=== PATIENT | male | born 1995 | race Caucasian/White ===

== ENCOUNTER 2017-04-13 14:10 | Emergency (ER) | payer BC ==
[2017-04-13 14:55] VITALS: BP 144/71
--- NOTE | 2017-04-13 15:36 | UC ---
Palpitation/Dysrhythmia HP - HPI Summary HPI Summary: PT REPORTS FEELING INTERMITTENTLY DIZZY, WEAK AND HAVING PALPITATIONS OVER THE PAST MONTH AND A HALF. DENIES CAFFEINE INTAKE. REPORTS GOOD HYDRATION. POSSIBLY SOME INCREASED STRESS IN HIS LIFE BUT HE DOES NOT HAVE A H/O ANXIETY. NO FEVER, RECENT ILLNESS, CP, SOB, N/V/D, SWEATS OR SYNCOPE. - History of Current Complaint Chief Complaint: UCGeneralIllness Stated Complaint: HEART SKIPPING AND BP ISSUE Time Seen by Provider: 04/13/17 14:57 Hx Obtained From: Patient Timing: Intermittent Episodes Lasting: Severity Initially: Moderate Severity Currently: None Pain Intensity: 0 Pain Scale Used: 0-10 Numeric Character: Skipped Beats Aggravating Factor(s): Exertion Alleviating Factor(s): Nothing Associated Signs & Symptoms: Positive: Dizzy - Allergy/Home Medications Allergies/Adverse Reactions: Allergies Allergy/AdvReac Type Severity Reaction Status Date / Time ENVIRONMENTAL/HAYFEVER Allergy Mild Runny Nose Uncoded 04/13/17 14:55 PMH/Surg Hx/FS Hx/Imm Hx Endocrine History Of: Denies: Diabetes, Thyroid Disease Cardiovascular History Of: Denies: Cardiac Disorders, Hypertension Respiratory History Of: Reports: Asthma Denies: COPD GI/ History Of: Denies: Ulcer - Surgical History Surgical History: Yes Surgery Procedure, Year, and Place: CHOLECYSTECTOMY 10/2012 - Family History Known Family History: Negative: Cardiac Disease, Hypertension, Diabetes - Social History Alcohol Use: Occasionally Substance Use Type: None Smoking Status (MU): Current Some Day Smoker Type: Cigars - Immunization History Vaccination Up to Date: Yes Review of Systems Constitutional: Negative Respiratory: Negative Cardiovascular: Palpitations Gastrointestinal: Negative Genitourinary: Negative All Other Systems Reviewed And Are Negative: Yes Physical Exam Triage Information Reviewed: Yes Appearance: Well-Appearing, No Pain Distress, Well-Nourished Vital Signs: Initial Vital Signs Temp 98.4 F 04/13/17 14:50 Pulse 76 04/13/17 14:50 Resp 20 04/13/17 14:50 BP 144/71 04/13/17 14:50 Pulse Ox 100 04/13/17 14:50 Vital Signs Reviewed: Yes Eyes: Positive: Conjunctiva Clear ENT: Positive: Hearing grossly normal, Pharynx normal, TMs normal Neck: Positive: Supple, Nontender, No Lymphadenopathy Respiratory Exam: Normal Cardiovascular Exam: Normal Abdomen Description: Positive: Soft Musculoskeletal: Positive: No Edema Neurological: Positive: Alert Psychological: Positive: Age Appropriate Behavior Skin: Negative: rashes Diagnostics - EKG Cardiac Rate: NL - 77 BPM Cardiac Rhythm: Sinus: Normal - INCOMPLETE RBBB Ectopy: None ST Segment: Normal Palpitations Course/Dx - Course Course Of Treatment: ADVISED OUTPATIENT WORK-UP WITH CARDIOLOGY. PT TO CALL FOR AN APPT FIRST THING Saturday. GO TO ER WITHOUT FAIL IF SX WORSEN. - Differential Dx/Diagnosis Provider Diagnoses: PALPITATIONS Discharge - Discharge Plan Condition: Stable Disposition: HOME Patient Education Materials: Palpitations (ED) Referrals: Juliano Love MD [Medical Doctor] - 1 Week Estefania Jones MD [Primary Care Provider] - Additional Instructions: BE SURE TO STAY WELL RESTED AND HYDRATED. AVOID EXCESSIVE CAFFEINE INTAKE. AVOID STRESSORS ABLE. FOLLOW-UP WITH CARDIOLOGY FOR A WORK-UP. GO TO ER WITHOUT FAIL IF YOU DEVELOP CHEST PAIN, SHORTNESS OF BREATH, NAUSEA, SWEATS, DIZZINESS OR ANY OTHER CONCERNING SYMPTOMS. CALL THE NUMBER BELOW FOR ASSISTANCE IN ESTABLISHING WITH A PCP An additional resource available to assist in finding the appropriate physician for your health care needs is the [facility] ([facility]). You may contact them by calling [phone].
== END 2017-04-13 15:46 | disposition home or self-care (01) ==
LOC: UCEAST 14:10
DX: R00.2 Palpitations (principal); J45.909 Unspecified asthma, uncomplicated; F17.290 Nicotine dependence, other tobacco product, uncomplicated; Z90.49 Acquired absence of other specified parts of digestive tract
CPT/HCPCS: 93005; 99211; G0463

== ENCOUNTER 2018-01-18 13:35 | Emergency (ER) | payer BC ==
[2018-01-18 13:49] VITALS: BP 127/75
--- NOTE | 2018-01-18 16:32 | UC ---
Haylee Sutton Nilda, scribed for Justyn Rao MD on 01/18/18 at 1358 . FLU HPI - HPI Summary HPI Summary: This patient is a 22 year old M presenting to [facility] [place] with a chief complaint of constant flu-like symptoms for one day. The patient rates the pain 2/10 in severity. Symptoms aggravated and alleviated by nothing. Patient reports cough, sore throat, body aches, rhinorrhea, and chills, but denies fever. Patient states recent sick contact with people positive for flu. - History of Current Complaint Chief Complaint: UCRespiratory Stated Complaint: FLU SYMPTOMS Time Seen by Provider: 01/18/18 13:51 Hx Obtained From: Patient Onset/Duration: Sudden Onset, Lasting Days, Still Present Severity Initially: Mild Pain Intensity: 2 Pain Scale Used: 0-10 Numeric Associated Signs & Symptoms: Positive: Myalgia, Cough, Sore Throat. Negative: Fever Related Hx: Possible Flu/Infectious Exposure - Allergy/Home Medications Allergies/Adverse Reactions: Allergies Allergy/AdvReac Type Severity Reaction Status Date / Time ENVIRONMENTAL/HAYFEVER Allergy Mild Runny Nose Uncoded 01/18/18 13:49 PMH/Surg Hx/FS Hx/Imm Hx Previously Healthy: Yes - Surgical History Surgical History: Yes Surgery Procedure, Year, and Place: CHOLECYSTECTOMY 10/2012 - Family History Known Family History: Negative: Cardiac Disease, Hypertension, Diabetes - Social History Alcohol Use: Occasionally Substance Use Type: None Smoking Status (MU): Current Some Day Smoker Type: Cigars - Immunization History Vaccination Up to Date: Yes Review of Systems Constitutional: Chills, Other - negative fever ENT: Sore Throat, Nasal Discharge Respiratory: Cough Musculoskeletal: Myalgia All Other Systems Reviewed And Are Negative: Yes Physical Exam Triage Information Reviewed: Yes Vital Signs: Initial Vital Signs Temp 99.6 F 01/18/18 13:46 Pulse 98 01/18/18 13:46 Resp 12 01/18/18 13:46 BP 127/75 01/18/18 13:46 Pulse Ox 98 01/18/18 13:46 Vital Signs Reviewed: Yes - Additional Comments VITAL SIGNS: Reviewed. GENERAL: Patient is a well developed and nourished M who is lying comfortable in the stretcher. Patient is not in any acute respiratory distress. HEAD AND FACE: Normocephalic EYES: PERRLA, EOMI x 2. Watery eyes. EARS: Hearing grossly intact. MOUTH: Oropharynx within normal limits. NECK: Supple, trachea is midline, no adenopathy, no JVD, no carotid bruit. CHEST: Symmetric, no tenderness at palpation LUNGS: Clear to auscultation bilaterally. No wheezing or crackles. CVS: Regular rate and rhythm, S1 and S2 present, no murmurs or gallops appreciated. ABDOMEN: Soft, non-tender. Bowel sounds are normal. No abdominal abnormal pulsations. EXTREMITIES: Full ROM in all major joints, no edema, no cyanosis or clubbing. NEURO: Alert and oriented x 3. No acute neurological deficits. Speech is normal and follows commands. SKIN: Dry and warm Re-Evaluation - Re-Evaluation First Eval Re-Evaluation Time: 14:20 Comment: Reviewed labs and D/C plan with patient. Flu Course/Dx - Course Course Of Treatment: This patient is a 22 year old M presenting to [facility] [place] with a chief complaint of constant flu-like symptoms for one day. The patient rates the pain 2/10 in severity. Symptoms aggravated and alleviated by nothing. Patient reports cough, sore throat, body aches, rhinorrhea, and chills, but denies fever. Patient states recent sick contact with people positive for flu. Influenza A negative. Influenza B positive. Medications given. I discussed all the findings and test results with the patient. Patient was instructed to return to the urgent care or go to ER immediately if any of the symptoms return or worsens. Plan of care was discussed with the patient and patient understands and agrees. All questions were answered to patient satisfaction. There were no further complaints or concerns. The patient was found to have increased BP in UC. The patient will follow up with PCP for better control of BP. - Differential Dx/Diagnosis Differential Diagnosis/HQI/PQRI: Bronchitis, Broncholiolitis, Influenza, Pneumonia, Upper Respiratory Infection Provider Diagnoses: Influenza Discharge - Discharge Plan Condition: Stable Disposition: HOME Prescriptions: Oseltamivir CAP* [Tamiflu CAP*] 75 mg PO BID #10 cap Patient Education Materials: Influenza (DC) Forms: *Work Release Referrals: Sixto Coates MD [Primary Care Provider] - Additional Instructions: Take medications as instructed Increase your fluid intake Return to the UC if symptoms worsen FOLLOW UP WITH YOUR PRIMARY CARE PROVIDER WITHIN ONE WEEK FOR HIGH BLOOD PRESSURE NOTED TODAY. The documentation as recorded by the Haylee segovia Nilda accurately reflects the service I personally performed and the decisions made by me, Justyn Rao MD.
== END 2018-01-18 14:29 | disposition home or self-care (01) ==
LOC: UCEAST 13:35
DX: J11.1 Influenza due to unidentified influenza virus with other respiratory manifestations (principal); F17.290 Nicotine dependence, other tobacco product, uncomplicated
CPT/HCPCS: 87502; 99212; G0463

== ENCOUNTER 2018-01-21 20:27 | Emergency (ER) | payer BC ==
[2018-01-21 20:50] VITALS: BP 149/83
--- NOTE | 2018-01-21 20:54 | UC ---
FLU HPI - HPI Summary HPI Summary: Pt presents with sore throat, sinus pain/pressure/congestion, and hoarseness. He tells me that 4 days ago he was diagnosed with the flu and started on tamiflu. His fever and body aches are feeling better, but his sinus symptoms are worsening and his sore throat is persisting. Denies fever, chills, SOB, chest pain, abdominal pain, n/v/d/c. - History of Current Complaint Chief Complaint: UCRespiratory Stated Complaint: URI Time Seen by Provider: 01/21/18 20:53 Hx Obtained From: Patient Severity Currently: Moderate Severity Initially: Moderate Pain Intensity: 6 Pain Scale Used: 0-10 Numeric - Allergy/Home Medications Allergies/Adverse Reactions: Allergies Allergy/AdvReac Type Severity Reaction Status Date / Time ENVIRONMENTAL/HAYFEVER Allergy Mild Runny Nose Uncoded 01/21/18 20:42 Home Medications: Home Medications Ibuprofen 200 mg PO Q6HR PRN 01/21/18 [History Confirmed 01/21/18] PMH/Surg Hx/FS Hx/Imm Hx Previously Healthy: Yes - Surgical History Surgical History: Yes Surgery Procedure, Year, and Place: CHOLECYSTECTOMY 10/2012 - Family History Known Family History: Negative: Cardiac Disease, Hypertension, Diabetes - Social History Occupation: Student Lives: With Family Alcohol Use: Occasionally Substance Use Type: None Smoking Status (MU): Never Smoked Tobacco Type: Cigars - Immunization History Vaccination Up to Date: Yes Review of Systems Constitutional: Negative Skin: Negative Eyes: Negative ENT: Sore Throat, Nasal Discharge, Sinus Congestion, Sinus Pain/Tenderness Respiratory: Negative Cardiovascular: Negative Gastrointestinal: Negative Neurological: Negative Psychological: Negative All Other Systems Reviewed And Are Negative: Yes Physical Exam Triage Information Reviewed: Yes Appearance: Well-Appearing, No Pain Distress, Well-Nourished Vital Signs: Initial Vital Signs Temp 99.0 F 01/21/18 20:44 Pulse 107 01/21/18 20:44 Resp 18 01/21/18 20:44 BP 149/83 01/21/18 20:44 Pulse Ox 98 01/21/18 20:44 Vital Signs Reviewed: Yes Eyes: Positive: Conjunctiva Clear. Negative: Conjunctiva Inflamed, Discharge ENT: Positive: Hearing grossly normal, Pharyngeal erythema, Nasal congestion, Nasal drainage, TMs normal, Hoarse voice, Sinus tenderness, Uvula midline. Negative: TM bulging, TM dull, TM red, Tonsillar swelling, Tonsillar exudate Neck: Positive: Supple, Other: - Anterior lymphadenopathy with mild TTP Respiratory: Positive: Lungs clear, Normal breath sounds, No respiratory distress, No accessory muscle use Cardiovascular: Positive: RRR, No Murmur, Pulses Normal Neurological: Positive: Fatigued Psychological: Positive: Age Appropriate Behavior Skin: Negative: rashes Flu Course/Dx - Course Course Of Treatment: Sinusitis. Pharyngitis - Differential Dx/Diagnosis Provider Diagnoses: Sinusitis. Pharyngitis Discharge - Discharge Plan Condition: Stable Disposition: HOME Prescriptions: Azithromycin TAB* [Zithromax TAB (Z-OXANA) 250 mg #6 tabs] 2 tab PO .TODAY, THEN 1 DAILY #1 oxana Patient Education Materials: Acute Bronchitis (ED) Referrals: Sixto Coates MD [Primary Care Provider] - Additional Instructions: If you develop a fever, shortness of breath, chest pain, new or worsening symptoms - please call your PCP or go to the ED. Your blood pressure was high at todays visit. Please see your primary provider within 4 weeks for recheck and re-evaluation.
[2018-01-21] MEDS ORDERED: Azithromycin TAB* 250 MG PO ONE (20:59)
== END 2018-01-21 21:10 | disposition home or self-care (01) ==
LOC: UCEAST 20:27
DX: J32.9 Chronic sinusitis, unspecified (principal); J02.9 Acute pharyngitis, unspecified
CPT/HCPCS: 99212; A9270-GY; G0463

== ENCOUNTER 2018-06-11 08:00 | Emergency (ER) | payer BC ==
--- NOTE | 2018-06-11 08:11 | UC ---
Complaint Male HPI - HPI Summary HPI Summary: This patient is a 22 year old M presenting [place] [facility] with a chief complaint of burning with urination that began a week ago. He states it is only occurs in the morning and resolves with increased frequency. The patient rates the pain 2/ 10 in severity. Patient denies draining, fever, chills, and ABD pain. Pt states he has intercourse with one women and doesnt believe she is experiencing sx. - History of Current Complaint Stated Complaint: STI SCREENING Time Seen by Provider: 06/11/18 08:04 Hx Obtained From: Patient Onset/Duration: Lasting Weeks, Still Present Timing: Intermittent, Lasting Hours Severity Initially: Mild Severity Currently: Mild Pain Intensity: 2 Pain Scale Used: 0-10 Numeric Location: Penis Associated Signs And Symptoms: Positive: Negative - draining, fever, chills, and ABD pain - Allergies/Home Medications Allergies/Adverse Reactions: Allergies Allergy/AdvReac Type Severity Reaction Status Date / Time ENVIRONMENTAL/HAYFEVER Allergy Mild Runny Nose Uncoded 06/11/18 08:16 Home Medications: Home Medications Cetirizine HCl [Zyrtec] 1 tab PO DAILY PRN 06/11/18 [History Confirmed 06/11/18] PMH/Surg Hx/FS Hx/Imm Hx Previously Healthy: Yes Other History Of: Negative For: Hepatitis C, Anticoagulant Therapy - Surgical History Surgical History: Yes Surgery Procedure, Year, and Place: CHOLECYSTECTOMY 10/2012 - Family History Known Family History: Negative: Cardiac Disease, Hypertension, Diabetes - Social History Alcohol Use: Occasionally Substance Use Type: None Smoking Status (MU): Never Smoked Tobacco Type: Cigars - Immunization History Vaccination Up to Date: Yes Review of Systems Constitutional: Negative - fever and chills Genitourinary: Other - burning All Other Systems Reviewed And Are Negative: Yes Physical Exam - Summary Physical Exam Summary: General: well-appearing, no pain distress Skin: warm, color reflects adequate perfusion, dry Head: normal Eyes: EOMI, JEFFRY ENT: normal Neck: supple, nontender Respiratory: CTA, breath sounds present Cardiovascular: RRR Abdomen: soft, nontender Bowel: present Musculoskeletal: normal, strength/ROM intact Neurological: sensory/motor intact, A&O x3 Psychological: affect/mood appropriate : normal, no discharge no tenderness, testicles are normal nontender without swelling or lesions Triage Information Reviewed: Yes Vital Signs Reviewed: Yes Complaint Male Course/Dx - Course Course Of Treatment: DISCUSSED RESULTS OF UA WITH PATIENT. PATIENT GOT ROCHEPIN 250MG IM AND AZITHROMYCIN 1000MG PO IN CLINIC. HE WAS ADVISED NO SEX UNTIL GONORRHEA CHALAMYDIA RESULTS ARE BACK. IF THISE TESTS ARE NEGATIVE, HE WILL F/U WITH PMD IF NOT IMPROVED. IF POSITIVE, HE WILL CONTACT HIS PARTNER SO SHE CAN BE TREATED AND GET RCHECKED TEST FOR CURE IN 3 WEEKS. RECHECK SOONER IF WORSE. - Differential Dx/Diagnosis Provider Diagnoses: URETHRITIS Discharge - Sign-Out/Discharge Documenting (check all that apply): Patient Departure - Discharge Plan Condition: Stable Disposition: HOME Patient Education Materials: Nonspecific Urethritis in Men (ED) Referrals: Sixto Coates MD [Primary Care Provider] - Additional Instructions: FOLLOW UP WITH YOUR DOCTOR IF NOT COMPLETELY IMPROVED. GET RECHECKED FOR ANY WORSENING OF YOUR CONDITION; PAIN, FEVER, YOU FEEL ILL OR QUESTIONS OR CONCERNS. - Billing Disposition and Condition Condition: STABLE Disposition: Home
[2018-06-11 08:16] VITALS: BP 130/75
[2018-06-11] MEDS ORDERED: cefTRIAXone VIAL(*) 250 MG VIAL IM ONE (08:17)
[2018-06-11] MEDS ORDERED: Azithromycin TAB* 250 MG PO ONE (08:18)
[2018-06-11] MEDS ORDERED: Lidocaine 1%* 5 ML VIAL ONE (08:29)
--- NOTE | 2018-06-13 17:43 | UC ---
- Progress Note Progress Note: please call patient let him know he is positive for chlamydia and has been treated properly---should be rechecked in 2 weeks and no unprotected sex until cleared by recheck Discharge - Sign-Out/Discharge Documenting (check all that apply): Post-Discharge Follow Up - Discharge Plan Condition: Stable Disposition: HOME Patient Education Materials: Nonspecific Urethritis in Men (ED) Referrals: Sixto Coates MD [Primary Care Provider] - Additional Instructions: FOLLOW UP WITH YOUR DOCTOR IF NOT COMPLETELY IMPROVED. GET RECHECKED FOR ANY WORSENING OF YOUR CONDITION; PAIN, FEVER, YOU FEEL ILL OR QUESTIONS OR CONCERNS. - Billing Disposition and Condition Condition: STABLE Disposition: Home
== END 2018-06-11 08:54 | disposition home or self-care (01) ==
LOC: UCEAST 08:00
DX: N34.2 Other urethritis (principal); Z91.09 Other allergy status, other than to drugs and biological substances
CPT/HCPCS: 81003; 87491; 87591; 96372; 99212; A9270-GY; G0463; J0696

== ENCOUNTER 2019-02-17 10:07 | Emergency (ER) | payer BC ==
[2019-02-17 10:38] VITALS: BP 120/69
--- NOTE | 2019-02-17 10:56 | UC ---
General HPI - HPI Summary HPI Summary: States he developed sore throat last night, low grade temp 99.4 +mild congestion. No cough. Mildly nauseated but didn't eat. No vomiting. No diarrhea. Works at [employer]. No rash. No abdominal pain. Just finished augmentin 1.5 weeks ago for sinus infection. Meds; REviwed - History of Current Complaint Chief Complaint: UCRespiratory Stated Complaint: SORE THROAT Time Seen by Provider: 02/17/19 10:45 Pain Intensity: 4 - Allergy/Home Medications Allergies/Adverse Reactions: Allergies Allergy/AdvReac Type Severity Reaction Status Date / Time ENVIRONMENTAL/HAYFEVER Allergy Mild Runny Nose Uncoded 02/17/19 10:38 Home Medications: Home Medications Ibuprofen 400 mg PO ONCE 02/17/19 [History Confirmed 02/17/19] PMH/Surg Hx/FS Hx/Imm Hx Previously Healthy: Yes Other History Of: Negative For: Hepatitis C, Anticoagulant Therapy - Surgical History Surgical History: Yes Surgery Procedure, Year, and Place: CHOLECYSTECTOMY 10/2012 - Family History Known Family History: Negative: Cardiac Disease, Hypertension, Diabetes - Social History Alcohol Use: Occasionally Substance Use Type: None Smoking Status (MU): Never Smoked Tobacco Type: Cigars - Immunization History Vaccination Up to Date: Yes Review of Systems All Other Systems Reviewed And Are Negative: Yes Constitutional: Positive: Fever ENT: Positive: Sore Throat, Sinus Congestion Respiratory: Positive: Negative Cardiovascular: Positive: Negative Physical Exam Triage Information Reviewed: Yes Appearance: Well-Appearing Vital Signs: Initial Vital Signs Temp 98.3 F 02/17/19 10:34 Pulse 81 02/17/19 10:34 Resp 18 02/17/19 10:34 BP 120/69 02/17/19 10:34 Pulse Ox 97 02/17/19 10:34 Vital Signs Reviewed: Yes Eyes: Positive: Conjunctiva Clear ENT: Positive: Pharyngeal erythema, Nasal congestion, TMs normal Neck: Positive: Supple, Enlarged Nodes @ - anterior cervical chain Respiratory: Positive: Lungs clear, Normal breath sounds Cardiovascular: Positive: RRR, No Murmur Course/Dx - Course Course Of Treatment: This is a 23 yr old with sore throat and low grade temp Assessment Nontoxic appearing Rapid strep: Negative Plan Strep throat test was negative Continue supportive care Recommend, rest, fluids, ibuprofen as needed for pain If symptoms persist or worsen, call your primary for further evaluation or return to urgent care - Diagnoses Provider Diagnosis: Pharyngitis Discharge - Sign-Out/Discharge Documenting (check all that apply): Patient Departure All imaging exams completed and their final reports reviewed: No Studies - Discharge Plan Condition: Good Disposition: HOME Patient Education Materials: Pharyngitis (ED) Forms: *Work Release Referrals: Sixto Coates MD [Primary Care Provider] - Additional Instructions: Strep throat test was negative Continue supportive care Recommend, rest, fluids, ibuprofen as needed for pain If symptoms persist or worsen, call your primary for further evaluation or return to urgent care - Billing Disposition and Condition Condition: GOOD Disposition: Home
== END 2019-02-17 11:27 | disposition home or self-care (01) ==
LOC: UCEAST 10:07
DX: J02.9 Acute pharyngitis, unspecified (principal); Z91.09 Other allergy status, other than to drugs and biological substances
CPT/HCPCS: 87651; 99211; G0463

== ENCOUNTER 2019-02-18 19:10 | Emergency (ER) | payer BC ==
--- NOTE | 2019-02-18 21:40 | UC ---
Throat Pain/Nasal Los HPI - HPI Summary HPI Summary: 23 year old male presents with 3 day history of sore throat. Reports mild nasal congestion and tender lymph nodes. Was evaluated in this facility yesterday for same. Negative strep. Denies ear pain, dysphagia, cough, chest pain, shortness of breath, abdominal pain, nausea, or vomiting. - History of Current Complaint Chief Complaint: UCGeneralIllness Stated Complaint: SORE THROAT Time Seen by Provider: 02/18/19 21:09 Hx Obtained From: Patient Pain Intensity: 7 - Allergies/Home Medications Allergies/Adverse Reactions: Allergies Allergy/AdvReac Type Severity Reaction Status Date / Time ENVIRONMENTAL/HAYFEVER Allergy Mild Runny Nose Uncoded 02/18/19 19:55 Home Medications: Home Medications guaiFENesin ER TAB [Mucinex*] 600 mg PO BID 02/18/19 [History Confirmed 02/18/19 ] PMH/Surg Hx/FS Hx/Imm Hx Previously Healthy: Yes - Denies significant PMH Other History Of: Negative For: Hepatitis C, Anticoagulant Therapy - Surgical History Surgical History: Yes Surgery Procedure, Year, and Place: CHOLECYSTECTOMY 10/2012 - Family History Known Family History: Negative: Cardiac Disease, Hypertension, Diabetes - Social History Occupation: Employed Full-time Lives: With Family Alcohol Use: Weekly Substance Use Type: Marijuana Smoking Status (MU): Smoker, Current Status Unknown Type: Cigars - Immunization History Vaccination Up to Date: Yes Review of Systems All Other Systems Reviewed And Are Negative: Yes Constitutional: Positive: Chills, Fatigue. Negative: Fever Skin: Negative: Rash Eyes: Negative: Drainage, Eye Redness ENT: Positive: Sore Throat. Negative: Ear Ache, Nasal Discharge, Sinus Congestion, Sinus Pain/Tenderness Respiratory: Negative: Shortness Of Breath, Cough Cardiovascular: Negative: Palpitations, Chest Pain Gastrointestinal: Negative: Abdominal Pain, Vomiting, Diarrhea, Nausea Genitourinary: Positive: Negative Musculoskeletal: Positive: Negative Neurological: Positive: Negative Is Patient Immunocompromised?: No Physical Exam - Summary Physical Exam Summary: GENERAL APPEARANCE: Well developed, well nourished, alert and cooperative, and appears to be in no acute distress. EYES: Conjunctiva clear. No drainage. Vision is grossly intact. EARS: External auditory canals and tympanic membranes clear, hearing grossly intact. NOSE: Mild nasal congestion. No nasal discharge. THROAT: Pharyngeal erythema with 2+ tonsils with exudate. Uvula midline. Oral cavity normal. Teeth and gingiva in good general condition. NECK: Neck supple, non-tender. Mild anterior cervical lymphadenopathy. CARDIAC: Normal S1 and S2. No S3, S4 or murmurs. Rhythm is regular. There is no peripheral edema, cyanosis or pallor. Extremities are warm and well perfused. Capillary refill is less than 2 seconds. Peripheral pulses intact. LUNGS: Clear to auscultation without rales, rhonchi, wheezing or diminished breath sounds. ABDOMEN: Positive bowel sounds. Soft, nondistended, nontender. No guarding or rebound. No masses or hepatosplenomegally. MUSKULOSKELETAL: ROM intact to all extremities. No joint erythema or tenderness. Normal muscular development. Normal gait. SKIN: Skin normal color, texture and turgor with no lesions or eruptions. Triage Information Reviewed: Yes Vital Signs: Initial Vital Signs Temp 99.6 F 02/18/19 19:50 Pulse 92 02/18/19 19:50 Resp 16 02/18/19 19:50 BP 124/73 02/18/19 19:50 Pulse Ox 99 02/18/19 19:50 Vital Signs Reviewed: Yes Throat Pain/Nasal Course/Dx - Course Course Of Treatment: 23 year old male presents with 3 day history of sore throat. Reports mild nasal congestion and tender lymph nodes. Was evaluated in this facility yesterday for same. Negative strep. Denies ear pain, dysphagia, cough, chest pain, shortness of breath, abdominal pain, nausea, or vomiting. Afebrile. VSS. Exam reveals a young adult male in no acute distress with mild nasal congestion, pharyngeal erythema, 2+ tonsils with exudate, mild anterior cervical lymphadenopathy, and otherwise unremarkable exam. A rapid strep test was repeated and was negative. Patient was given a dose of dexamethasone 10 mg in the clinic for the pain and swelling. Recommend continued symptomatic treatment for viral pharyngitis. I discussed with the patient the differential of mono however based on duration of his symptoms testing would likely be negative even if this is the cause therefore recommend deferring testing at this time. He is to follow up with his PCP in 7 days if no improvement. Anticipatory guidance and warning symptoms reviewed with patient. Verbalizes understanding and agrees with POC. - Differential Dx/Diagnosis Differential Diagnosis/HQI/PQRI: Mononucleosis, Peritonsillar Abscess, Pharyngitis, Tonsillitis, URI Provider Diagnosis: Acute viral pharyngitis Discharge - Sign-Out/Discharge Documenting (check all that apply): Patient Departure All imaging exams completed and their final reports reviewed: No Studies - Discharge Plan Condition: Stable Disposition: HOME Patient Education Materials: Pharyngitis (ED) Forms: *Work Release Referrals: Sixto Coates MD [Primary Care Provider] - 7 Days (If no improvement in symptoms.) Additional Instructions: Your repeat rapid strep test in the clinic today was negative. Your symptoms are likely from a viral infection. Viral infections do not respond to antibiotics and are limited to the treatment of symptoms. Viral infections typically run their course in 7-10 days. You were given a dose of a steroid called dexamethasone in clinic to help with swelling and pain. This is a long-acting steroid and will be in your system for the next 3 days. Drink plenty of fluids to avoid dehydration especially if you are running any fever. Use salt water gargles several times a day. Take over the counter acetaminophen (Tylenol) or ibuprofen (Advil, Motrin) according to directions as needed for pain or fever. You may also use Chloraseptic spray or Cepacol lonzenges according to directions which contain a numbing medication and can provide some temporary relief from your sore throat. Return here or follow up with your primary care provider in 7 days if symptoms persist. Seek immediate medical attention in the emergency room if you have fever greater than 100.5 F despite taking acetaminophen or ibuprofen, are unable to swallow or develop drooling, are unable to open your mouth fully, are unable to eat or drink, have pain that is not relieved with over the counter pain medication, or have any difficulty breathing. - Billing Disposition and Condition Condition: STABLE Disposition: Home
[2019-02-18] MEDS ORDERED: Dexamethasone TAB* 4 MG PO ONE (21:47)
[2019-02-18 22:21] VITALS: BP 118/72
== END 2019-02-18 22:21 | disposition home or self-care (01) ==
LOC: UCEAST 19:10
DX: J02.9 Acute pharyngitis, unspecified (principal); Z91.09 Other allergy status, other than to drugs and biological substances
CPT/HCPCS: 87651; 99212; G0463; J8540